=== PATIENT | male | born 1975 | race Caucasian/White ===

== ENCOUNTER 2022-11-20 08:32 | Outpatient (CLI) | payer OTHER, SELFPAY ==
--- NOTE | ~2022-11-20 | XR_ITS ---
EXAM: XR knee LT min 4V DATE: 11/20/2022 08:53 HISTORY: left lateral side knee pain. NKI . COMPARISON: None available. FINDINGS: Normal mineralization. No fracture or dislocation. No lytic or blastic lesion. Mild medial joint space narrowing. Mild tricompartmental osteophytosis. No erosion or periosteal change. Soft ti ssues within normal limits. Trace joint fluid. IMPRESSION: Mild tricompartmental left knee osteoarthritis. Reviewed, dictated and finalized at location [facility]. [employer]
== END 2022-11-20 08:33 | disposition home or self-care (01) ==
PROVIDERS: PCP Nurse Practitioner Family; Visit Provider Nurse Practitioner Family
DX: M17.12 Unilateral primary osteoarthritis, left knee (principal)
CPT/HCPCS: 73564

== ENCOUNTER 2024-06-25 00:28 | Day surgery (SDC) | payer OTHER, SELFPAY ==
[2024-06-11 11:02] VITALS: BMI 28.5
[2024-06-25 07:34] VITALS: BP 119/80; PULSE 76; RESP 20; TEMP 35.8; O2SAT 99; BMI 28.0
[2024-06-25] MEDS: LACTATED RINGERS 1,000 ML 150 ML IV CONT (07:42)
--- NOTE | 2024-06-25 08:10 | PM.IMHP ---
H&P: HPI History of Present Illness Date/Time: 06/25/24 08:10 Chief Complaint: screening for colorectal cancer Narrative: this is a 48-year-old man who presents for colonoscopy. He had a colonoscopy about 10 or 12 years ago for bleeding hemorrhoids but this was otherwise normal. He denies any current hematochezia or melena. He denies any family history of colon cancer. Review of Systems Review of Systems: All systems reviewed & are unremarkable except as noted in HPI and below Constitutional: Constitutional: Denies chills, Denies fever(s), Denies headache(s) and Denies weight loss Eyes: Eyes: Denies change in vision ENT: Denies dizziness, Denies headache(s), Denies neck mass and Denies throat swelling Cardiovascular: Cardiovascular: Denies chest pain, Denies lightheadedness and Denies dyspnea Respiratory: Respiratory: Denies cough, Denies dyspnea and Denies wheezing Gastrointestinal: Gastrointestinal: Denies abdominal pain, Denies change in bowel habits, Denies nausea and Denies vomiting Genitourinary: Genitourinary: Denies hematuria and Denies dysuria Musculoskeletal: Musculoskeletal: Reports as per HPI Integumentary/Breasts: Skin/Breast: Reports as per HPI Neurologic: Denies dizziness and Denies headache(s) Allergic/Immunologic: Allergic/Immunologic: Denies throat swelling and Denies wheezing [facility] Past Medical History Medical History Erectile dysfunction Hyperlipidemia Family History Family History Father Patient's father is in good health Sibling Patient's sister is in good health Patient's brother is in good health Mother Family history of renal cell carcinoma Social History Social History Smoking status: Never smoker Second hand tobacco smoke exposure: Yes Alcohol intake: current Drinks per week: 10 Alcohol use details: social Substance use: never Substance use type: does not use Lack of Transportation: No Lack of Food: Never True Current Housing: I Have Housing Concerned About Future Housing: No Difficulty Paying Gas/Electric Bills: No Difficulty Paying for Meds: No Currently Unemployed: No Education: Bachelor's Degree Difficulty w/ Childcare or Family Care: No Living arrangements: with family Spiritual care concerns: No Meds Home Medications and Allergies Home Medications Medication Instructions Recorded Confirmed Type omega-3 fatty acids 1,000 mg 1,000 mg PO DAILY 04/24/21 06/25/24 History capsule (Fish Oil Concentrate) sildenafil 50 mg tablet 50 mg PO DAILY PRN sexual activity 02/13/24 06/25/24 Rx #10 tabs Allergies Allergy/AdvReac Type Severity Reaction Status Date / Time NKDA Allergy Unknown Unknown Uncoded 06/25/24 07:32 Vital Signs Vital Signs - 24 hr 06/25/24 07:34 Temperature 96.5 F L Pulse Rate 76 Respiratory Rate 20 Blood Pressure 119/80 Pulse Oximetry 99 Oxygen Delivery Room Air Exam Const: General: no acute distress and alert Orientation/consciousness: patient oriented x3 HENMT: Head: normocephalic and atraumatic Ears: hearing grossly normal bilaterally Face/Nose/Sinus: Normal nares present Mouth: Yes Normal oral and palatal mucosa present Eyes: Periorbital: periorbital findings normal Sclera: sclerae normal EOM: EOMs intact bilaterally Neck: Neck: normal visual inspection, no lymphadenopathy and trachea midline Chest: Chest palpation & inspection: normal inspection of the chest Resp: Effort & Inspection: normal respiratory effort Auscultation: clear to auscultation bilaterally Cardio: Jugular venous distension: no JVD Rate: regular rate Rhythm: regular rhythm Heart sounds: S1 normal heart sound present and S2 normal heart sound present Peripheral pulses: Peripheral pulses 2+ throughout GI: Inspection: normal to inspec
--- NOTE | 2024-06-25 08:14 | WPDANESEPPF ---
Anes - Initial Pre Proc Eval Procedure: Operation Date: 06/25/24 09:00 Proposed Procedures p Screening Colonoscopy - Jose Manuel Mata DO Date/Time: 06/25/24 08:14 Surgeon: Jose Manuel Mata DO Pre Op Diagnosis: Screening for malignant neoplasm of colon Patient Data Age: 48 Gender: M Height: 1.8 m Weight: 91.3 kg Last Vital Signs Temp 96.5 F L 06/25/24 07:34 Pulse 76 06/25/24 07:34 Resp 20 06/25/24 07:34 BP 119/80 06/25/24 07:34 Pulse Ox 99 06/25/24 07:34 O2 Del Method Room Air 06/25/24 07:34 Allergies Allergy/AdvReac Type Severity Reaction Status Date / Time NKDA Allergy Unknown Unknown Uncoded 06/25/24 07:32 Home Medications Medication Instructions Recorded Confirmed Type omega-3 fatty acids 1,000 mg 1,000 mg PO DAILY 04/24/21 06/25/24 History capsule (Fish Oil Concentrate) sildenafil 50 mg tablet 50 mg PO DAILY PRN sexual activity 02/13/24 06/25/24 Rx #10 tabs Patient hx anesthesia problems: none Family hx anesthesia problems: none Results Review: All pre-operative results and documents have been reviewed as part of the pre-operative evaluation. [facility], [facility] Past Medical History Medical History Erectile dysfunction Hyperlipidemia Family History Family History Father Patient's father is in good health Sibling Patient's sister is in good health Patient's brother is in good health Mother Family history of renal cell carcinoma Social History Social History Smoking status: Never smoker Second hand tobacco smoke exposure: Yes Alcohol intake: current Drinks per week: 10 Alcohol use details: social Substance use: never Substance use type: does not use Lack of Transportation: No Lack of Food: Never True Current Housing: I Have Housing Concerned About Future Housing: No Difficulty Paying Gas/Electric Bills: No Difficulty Paying for Meds: No Currently Unemployed: No Education: Bachelor's Degree Difficulty w/ Childcare or Family Care: No Living arrangements: with family Spiritual care concerns: No Anes - Eval Final PreProcedure Day of Procedure 06/25/24 08:14 Patient weight: normal Heart: regular rate and rhythm Lungs: clear to auscultation Airway: Mallampati scale class II Neurological: alert and oriented Last oral intake: >/= 8 hours ASA classification: II Emergent: no Anesthetic plan: proceed Anesthesia type and monitoring: general GIVS and standard monitoring Results Review: All pre-operative results and documents have been reviewed as part of the pre-operative evaluation. Informed Consent: The patient's anesthetic plan and its attendant risks and benefits were discussed with the patient/family/POA. Questions were solicited and answers provided to the satisfaction of the patient/family/POA.
[2024-06-25 09:00] VITALS: BP 100/68; PULSE 64; RESP 17; O2SAT 97
[2024-06-25 09:10] VITALS: BP 99/63; PULSE 61; RESP 20; O2SAT 99
[2024-06-25 09:20] VITALS: BP 103/74; PULSE 65; RESP 19; O2SAT 97
== END 2024-06-25 09:35 | disposition home or self-care (01) ==
PROVIDERS: PCP Nurse Practitioner Family; Visit Provider Surgery
PROC: 0DJD8ZZ Inspection of Lower Intestinal Tract, Via Natural or Artificial Opening Endoscopic (ICD-10-PCS; CPT 45378; principal; 2024-06-25 09:00)
DX: Z12.11 Encounter for screening for malignant neoplasm of colon (principal); K64.8 Other hemorrhoids; E78.5 Hyperlipidemia, unspecified; N52.9 Male erectile dysfunction, unspecified; Z80.51 Family history of malignant neoplasm of kidney
CPT/HCPCS: 45378; J2003; J2704; J7120